=== PATIENT | female | born 1975 | race Two or more races ===

== ENCOUNTER 2022-05-22 16:51 | Emergency (ER) | payer BC, OTHER ==
[~2022-05-22] VITALS: Ht 162.6 cm; Wt 53.5 kg
[~2022-05-22 16:51] MED LIST: MECL-182 PO
--- NOTE | 2022-05-22 16:55 | NUR ---
CALLED IN ED WAITING ROOM. NO RESPONSE.
[2022-05-22 17:11] VITALS: BP 135/81
--- NOTE | 2022-05-22 17:15 | NUR ---
BIBS FOR C/O LEFT EYE PAIN/REDNESS STARTED THIS MORNING WHILE SHE WAS "CLEANING WITH MY FINGER". RATES PAIN 10/10. WILL CONTINUE TO MONITOR THE PATIENT.
[2022-05-22] MEDS ORDERED: FLUORESCEIN SODIUM OPHTH 1 EA STRIP ONE (17:16)
[2022-05-22] MEDS ORDERED: ERYTHROMYCIN BASE OPHTH 3.5 GM TUBE OP ONE ×2 (18:00)
[2022-05-22] MEDS ORDERED: ERYTHROMYCIN BASE OPHTH 3.5 GM TUBE ONE (18:05)
--- NOTE | 2022-05-22 18:12 | NUR ---
ERYTHROMYCIN OINTMENT DOUBLE ORDERED.
[2022-05-22] MEDS ORDERED: ERYT3.5O9 EACHEYE (18:14)
--- NOTE | 2022-05-22 18:18 | NUR ---
Patient discharged to home in stable condition. Written and verbal after care instructions given. Patient verbalizes understanding of instruction.
== END 2022-05-22 18:18 | disposition home or self-care (01) ==
LOC: ER 17:11
DX: H57.12 Ocular pain, left eye (principal)